=== PATIENT | male | born 1990 | race Caucasian/White ===

== ENCOUNTER 2017-12-06 10:06 | Inpatient (IN) | payer SELFPAY ==
[2017-12-06] VITALS (9 sets, daily range): BP systolic 107–139; BP diastolic 62–93; Ht 182.9 cm; Wt 80.1 kg
[~2017-12-06] VITALS: Ht 182.9 cm; Wt 80.1 kg
--- NOTE | ~2017-12-06 | HP ---
PATIENT: DEANNA GRIFFIN MEDICAL RECORD: [id number] ACCOUNT: [id number] LOCATION:[facility] [id number] : 89 ADMISSION DATE: 12/06/17 HISTORY AND PHYSICAL EXAMINATION DATE OF ADMISSION: 12/06/2017. CHIEF COMPLAINT: Multiple drug abuse. HISTORY OF PRESENT ILLNESS: This is a 27-year-old white male who was reportedly found by police sitting in his car unresponsive. He was brought in, he was little combative, uncooperative, agitated, his heart rate was high. He was given meds to calm him down in the Emergency Department and he is now sleeping. Urine drug screen was positive for amphetamines, benzodiazepines, cocaine, marijuana, and opiates. He is admitted to the ICU for close monitoring. PAST MEDICAL HISTORY: Not known. I tried to review records from [facility] as well as [facility] here in town. I reviewed his name on [place] prescription management program and he had had a few hydrocodone prescribed in the summer of 2016. PAST SURGICAL HISTORY: Unknown. ALLERGIES: None known. SOCIAL HISTORY: Unknown. FAMILY HISTORY: Unknown. REVIEW OF SYSTEMS: Not obtainable. HOME MEDICATIONS: None known. PHYSICAL EXAMINATION: VITAL SIGNS: Temperature 94.1, heart rate in the ER where I saw him was 109, respiratory rate 12, blood pressure 135/93, O2 sat 96% on room air. GENERAL: He was not responsive. He was under the influence of medicines in the Emergency Department. SKIN: Warm and dry. He has tattoos noted. HEENT: Grossly within normal limits. NECK: Supple. No JVD or bruit. HEART: Tachycardia. LUNGS: Clear. ABDOMEN: He does not respond in any painful way to palpation. EXTREMITIES: No edema. NEUROLOGIC: Will not follow commands due to his condition. ASSESSMENT: Multiple drug abuse. PLAN: We will monitor in the ICU, give him IV fluids, Ativan as needed. Other tests and procedures as warranted. TRANSINT:[id number] Voice Confirmation ID: [id number] DOCUMENT ID: [id number] HISTORY AND PHYSICAL [id number] DEANNA GRIFFIN, [place] at 0809 CC: [id number] DICTATION DATE: 12/06/172003 ABRASIVE WHEEL MOLDER: 12/07/17 0218 ADM IN [place] [id number] [place] [address]
[2017-12-06 10:29] LABS: BASOPHILS 0.1 % (0-2); EOSINOPHILS 0.4 % (0-7); HEMOGLOBIN 16.2 g/dL (13.5-17.5); IMMATURE GRANULOCYTES 0.1 % (0-5); LYMPHOCYTES 15.2 % (15-50); MCH 32.5 pg (26.0-34.0); MCHC 34.5 g/dL (31.0-37.0); MCV 94.4 fL (80.0-100.0); MEAN PLATELET VOLUME 9.3 fL (7.4-10.4); MONOCYTES 8.7 % (2-11); NEUTROPHILS 75.5 % (40-80); PLATELET COUNT 353 10x3/uL (130-400); RBC 4.98 10x6/uL (4.20-6.10); RDW 13.1 % (11.5-14.5)
[2017-12-06 10:30] LABS: APPEARANCE CLEAR (CLEAR); BILIRUBIN NEGATIVE (NEGATIVE); COLOR YELLOW (YELLOW); GLUCOSE NEGATIVE (NEGATIVE); KETONE NEGATIVE (NEGATIVE); NITRITE NEGATIVE (NEGATIVE); PROTEIN 1+ mg/dL (NEGATIVE); UROBILINOGEN NORMAL (NORMAL)
[2017-12-06 10:36] LABS: BACTERIA FEW /hpf (NONE SEEN); EPITHELIAL CELLS OCC /hpf (0-5); HYALINE CAST 0-5 /lpf (NONE SEEN); MUCUS <1+ /lpf (NONE SEEN); UDS - AMPHET POSITIVE QUAL (NEGATIVE); UDS - BARB NEGATIVE QUAL (NEGATIVE); UDS - BENZO POSITIVE QUAL (NEGATIVE); UDS - COCAINE POSITIVE QUAL (NEGATIVE); UDS - OPIATE POSITIVE QUAL (NEGATIVE); UDS - PCP NEGATIVE QUAL (NEGATIVE); UDS - THC POSITIVE QUAL (NEGATIVE); WHITE CELLS - URINE 0-5 /hpf (0-5)
[2017-12-06 10:37] LABS: AMORPHOUS SEDIMENT <1+ /lpf (NONE SEEN); GRANULAR CAST RARE /lpf (NONE SEEN)
[2017-12-06 10:42] LABS: ALBUMIN 4.4 g/dL (3.4-5.0); ANION GAP 19.9 mmol/L (8-16); BILIRUBIN - TOTAL 0.5 mg/dL (0.2-1.3); CARBON DIOXIDE 23.7 mmol/L (21.0-32.0); CREATININE - SERUM 1.3 mg/dL (0.6-1.3); POTASSIUM - SERUM 3.6 mmol/L (3.5-5.1); PROTEIN - SERUM 7.8 g/dL (6.4-8.2)
[2017-12-06 10:52] LABS: THYROID STIMULATING HORMONE 0.39 uIU/mL (0.36-3.74)
[2017-12-07] VITALS (10 sets, daily range): BP systolic 107–149; BP diastolic 62–103
[2017-12-07 06:18] LABS: BASOPHILS 0.2 % (0-2); EOSINOPHILS 1.2 % (0-7); HEMATOCRIT 44.3 % (42.0-54.0); HEMOGLOBIN 14.7 g/dL (13.5-17.5); IMMATURE GRANULOCYTES 0.2 % (0-5); LYMPHOCYTES 28.3 % (15-50); MCH 31.8 pg (26.0-34.0); MCHC 33.2 g/dL (31.0-37.0); MCV 95.9 fL (80.0-100.0); MEAN PLATELET VOLUME 9.5 fL (7.4-10.4); MONOCYTES 9.5 % (2-11); NEUTROPHILS 60.6 % (40-80); PLATELET COUNT 287 10x3/uL (130-400); RBC 4.62 10x6/uL (4.20-6.10); RDW 13.5 % (11.5-14.5); WBC 6.6 10x3/uL (4.8-10.8)
[2017-12-07 06:40] LABS: CALCIUM 8.2 mg/dL (8.5-10.1); CARBON DIOXIDE 25.2 mmol/L (21.0-32.0); CHLORIDE - SERUM 109 mmol/L (98-107); POTASSIUM - SERUM 4.1 mmol/L (3.5-5.1); SODIUM 145 mmol/L (136-145)
[2017-12-07 06:42] LABS: CALC OSMOLALITY 284 mosm/kg (275-300); CREATININE - SERUM 0.9 mg/dL (0.6-1.3); GLUCOSE 73 mg/dL (74-106); UREA NITROGEN 4 mg/dL (7-18); eGFR NON AFRICAN AMERICAN > 90 mL/min (90-120)
== END 2017-12-07 17:46 | disposition left against medical advice (07) | DRG 894 ==
LOC: D.ER 10:06 → D.ICU 11:18 → D.EDHOLD 11:18 → D.ICU 13:15
PROVIDERS: Family Medicine
DX: F15.129 Other stimulant abuse with intoxication, unspecified (principal); R40.2123 Coma scale, eyes open, to pain, at hospital admission; F14.129 Cocaine abuse with intoxication, unspecified; F12.129 Cannabis abuse with intoxication, unspecified; F11.129 Opioid abuse with intoxication, unspecified; F13.129 Sedative, hypnotic or anxiolytic abuse with intoxication, unspecified; R40.2353 Coma scale, best motor response, localizes pain, at hospital admission; R40.2243 Coma scale, best verbal response, confused conversation, at hospital admission